=== PATIENT | male | born 1995 | race Two or more races ===

== ENCOUNTER 2023-11-07 00:24 | Emergency (ER) | payer MEDICARE, MEDICAID ==
[~2023-11-07] VITALS: Ht 172.7 cm; Wt 120.3 kg
[2023-11-07 02:11] VITALS: BP 148/79; PULSE 93; RESP 16; TEMP 99; O2SAT 96
[2023-11-07] MEDS ORDERED: ACET500T58 PO (02:37)
[2023-11-07] MEDS ORDERED: AMOX875T4 PO (02:37)
[2023-11-07] MEDS ORDERED: CARB6.5S44 LEFT EAR (02:37)
[2023-11-07] MEDS ORDERED: PRED20TA2 PO (02:37)
[2023-11-07] MEDS: cefTRIAXone SOD 1,000 MG VL IM ONE (02:39)
[2023-11-07] MEDS: methylPREDNISolone SOD SUCC 125 MG/2 ML VL IM ONE (02:39)
== END 2023-11-07 02:54 | disposition home or self-care (01) ==
LOC: ER 00:24
DX: J03.90 Acute tonsillitis, unspecified (principal); H61.22 Impacted cerumen, left ear
CPT/HCPCS: 96372; 99284; J0696; J2930